=== PATIENT | male | born 1975 | race African-American/Black ===

== ENCOUNTER 2018-10-21 00:14 | Emergency (ER) | payer MEDICAID, OTHER ==
[~2018-10-21] VITALS: Ht 170.2 cm; Wt 92.5 kg
[2018-10-21] MEDS ORDERED: IPRATROPIUM BROM 0.5 MG/2.5ML INH SOL NEB ONE (00:30)
[2018-10-21] MEDS ORDERED: ALBUTEROL SULF 2.5 MG/0.5ML(0.5%) NEB SOLN NEB ONE (00:30)
[2018-10-21 01:12] VITALS: BP 138/91
== END 2018-10-21 02:17 | disposition left against medical advice (07) ==
LOC: ER 00:14
DX: R06.02 Shortness of breath (principal); Z53.21 Procedure and treatment not carried out due to patient leaving prior to being seen by health care provider
CPT/HCPCS: 71045; 94640